=== PATIENT | male | born 1990 | race Caucasian/White ===

== ENCOUNTER → 2016-09-20 | Emergency (ER) | payer OTHER ==
[2016-09-20 22:01] VITALS: BP 130/73; PULSE 75; TEMP 98.5; BMI 27.8
== END | disposition left against medical advice (07) ==
LOC: JERFT 21:56 → JER 21:56
DX: Z53.21 Procedure and treatment not carried out due to patient leaving prior to being seen by health care provider (principal)
CPT/HCPCS: 99281-25